=== PATIENT | male | born 1965 | race Caucasian/White ===

== ENCOUNTER 2018-02-18 06:24 | Day surgery (SDC) | payer MEDICARE ==
[2018-02-18] MEDS ORDERED: DIPRIVAN 200 MG/20 ML IV ONE (06:25)
[2018-02-18] MEDS ORDERED: Ketamine HCl 50 MG/ML IJ ONE (06:25)
[2018-02-18] MEDS ORDERED: Lactated Ringers 1,000 ML IV SCH (06:30)
[2018-02-18 08:38] VITALS: O2SAT 97
[2018-02-18 08:39] VITALS: BP 140/84; PULSE 74
--- NOTE | 2018-02-18 08:41 | OP ---
SURGERY DATE/TIME: 02/18/2018 0714 PREOPERATIVE DIAGNOSIS: Dysphagia. POSTOPERATIVE DIAGNOSIS: Normal exam. PROCEDURE: EGD. SURGEON: Yuniel Emerson M.D. ANESTHESIA: MAC by Brandon Bingham CRNA. ESTIMATED BLOOD LOSS: None. SPECIMENS: None. DESCRIPTION OF PROCEDURE: After informed written consent was obtained, the patient was taken to the endoscopy suite. He underwent monitored anesthesia and a bite block was inserted. The endoscope was inserted into the posterior oropharynx and under direct visualization the esophagus was traversed. The esophageal mucosa had no obvious abnormalities. There was no evidence of stricture or webbing upon entry into the stomach. There was normal rugated gastric mucosa free of lesions or defects. The pylorus was traversed and the first and second portions of the duodenum within normal limits. Upon withdrawal again all mucosal structures appeared normal. The gastric mucosa was free of any lesions. The gastroesophageal junction and esophageal mucosa likewise appeared normal. The scope was removed and the patient was transferred to the recovery room in good condition.
== END 2018-02-18 08:53 | disposition home or self-care (01) ==
LOC: SDC 06:24
PROVIDERS: ATTEND Family Medicine
DX: R13.10 Dysphagia, unspecified (principal)
CPT/HCPCS: 82962; 94250; J2704

== ENCOUNTER 2018-04-22 05:59 | Day surgery (SDC) | payer MEDICARE ==
[2018-04-22] MEDS ORDERED: DIPRIVAN 200 MG/20 ML IV ONE (06:00)
[2018-04-22] MEDS ORDERED: Ketamine HCl 50 MG/ML IV ONE (06:00)
[2018-04-22] MEDS ORDERED: Lactated Ringers 1,000 ML IV ONE (06:00)
[2018-04-22] MEDS ORDERED: Lactated Ringers 1,000 ML IV SCH (06:30)
[2018-04-22 08:17] VITALS: O2SAT 96
--- NOTE | 2018-04-22 08:44 | OP ---
SURGERY DATE/TIME: 04/22/2018 0715 PREOPERATIVE DIAGNOSIS: Screening colonoscopy. POSTOPERATIVE DIAGNOSIS: Normal colon. PROCEDURE: Colonoscopy. SURGEON: Yuniel Emerson M.D. ANESTHESIA: MAC by Grady Bingham CRNA. ESTIMATED BLOOD LOSS: None. SPECIMENS: None. DESCRIPTION OF PROCEDURE: After informed written consent was obtained, the patient was taken to the endoscopy suite. He underwent monitored anesthesia and digital rectal exam showed normal sphincter tone and no internal lesions. The scope was inserted into the rectum and sequentially the entire colonic mucosa was traversed. The level of cecum was reached and verified with direct visualization of ileocecal valve. Upon withdrawal careful mucosal inspection revealed no gross abnormalities. Of note there was a fair amount of liquid stool throughout most of the length of the colon which was irrigated, suctioned in different areas to improve visualization but prep was noted to be suboptimal. Prior to withdrawal retroflexion showed no internal lesions. The scope was removed and the patient was transferred to the recovery room in excellent condition.
[2018-04-22 08:48] VITALS: PULSE 73
[2018-04-22 08:59] VITALS: BP 127/71
== END 2018-04-22 09:08 | disposition home or self-care (01) ==
LOC: SDC 05:59
PROVIDERS: ATTEND Family Medicine
DX: Z12.11 Encounter for screening for malignant neoplasm of colon (principal); E11.9 Type 2 diabetes mellitus without complications; K21.9 Gastro-esophageal reflux disease without esophagitis
CPT/HCPCS: 00812; 94250; G0121; J2704

== ENCOUNTER 2019-01-12 17:59 | Emergency (ER) | payer MEDICARE | END 2019-01-12 20:35 | disposition home or self-care (01) | LOC: ED 17:59 ==

== ENCOUNTER 2019-11-10 15:03 | Inpatient (IN) | payer MEDICARE ==
[2019-11-10] MEDS ORDERED: DUONEB 0.5-3 MG/3 ml Neb IH ONE ×2 (15:10)
[2019-11-10] MEDS ORDERED: solu-MEDROL 125 MG IV ONE (15:10)
[2019-11-10] MEDS ORDERED: Sodium Chloride 0.9% 1000 ML 1,000 ML IV STA ×2 (15:10→15:43)
[2019-11-10] MEDS ORDERED: Sodium Chloride 0.9% 1000 ML 1,000 ML ONE ×2 (15:12→15:45)
[2019-11-10] MEDS ORDERED: solu-MEDROL 125 MG ONE (15:17)
--- NOTE | 2019-11-10 15:17 | ERPHSYRPT ---
- History of Present Illness Time Seen by Provider: 11/10/19 15:08 Source: patient Exam Limitations: clinical condition Physician History: 54 years old male with history of diabetes mellitus, COPD presented in the ER with worsening dyspnea since morning. Patient report shortness of breath started all of a sudden at resting, aggravated with minimal activity and can hardly take few steps. He is also complaining of minimal productive clear yellow sputum cough. Has some pressure in the chest but no pain otherwise. He also has nausea and vomited once. No abdominal pain. Denies any fever or chills. Timing/Duration: today, sudden, worse Activities at Onset: rest Severity of Dyspnea-Max: severe Severity of Dyspnea-Current: severe Possible Cause: no prior episodes Modifying Factors: Improves With: activity Associated Symptoms: cough, weakness (generalized), sweating, No edema, No fever , No loss of appetite, No lightheadedness, No dizziness Allergies/Adverse Reactions: No Known Drug Allergies Allergy (Verified 04/22/18 06:19) Home Medications: Celecoxib [Celebrex] 200 mg PO BID 02/26/13 [History] Metformin HCl 1000 mg [Glucophage 1000 MG] 1,000 mg PO BID 02/26/13 [History] Montelukast Sodium 10 mg [Singulair 10 MG] 10 mg PO DAILY 02/26/13 [History] Fluticasone Propionate [Flonase Allergy Relief] 9.9 ml NS UD 02/11/18 [History] Fluticasone/Salmeterol [Advair 500-50 Diskus] 1 each IH DAILY 02/11/18 [History] Insulin Degludec [Tresiba Flextouch U-100] 58 unit SQ HS 02/11/18 [History] Insulin Lispro [Humalog] 15 unit SQ DAILY 02/11/18 [History] Ipratropium/Albuterol Sulfate [Combivent Inhaler] 15 gm IH DAILY 02/11/18 [ History] Omeprazole 20 MG [Prilosec 20 mg] 20 mg PO HS 02/11/18 [History] Zolpidem Tartrate 10 mg [Ambien 10 MG] 10 mg PO HS 02/11/18 [History] Pravastatin Sodium [Pravachol] 40 mg PO HS 03/20/18 [History] Hx Tetanus, Diphtheria Vaccination/Date Given: No Hx Influenza Vaccination/Date Given: Yes Hx Pneumococcal Vaccination/Date Given: No - Review of Systems All Other Systems: Unable due to condition - Past Medical History Pertinent Past Medical History: Yes Neurological History: Peripheral Neuropathy ENT History: Cataracts Cardiac History: High Cholesterol Respiratory History: COPD Endocrine Medical History: Diabetes Type II Musculoskeletal History: Osteoarthritis GI Medical History: GERD, Gallbladder Disease History: No Pertinent History Psycho-Social History: No Pertinent History Male Reproductive Disorders: No Pertinent History Other Medical History: CHOLECYSTECTOMY, NECK ABSCESS - Past Surgical History Past Surgical History: Yes Neuro Surgical History: No Pertinent History Cardiac: No Pertinent History Respiratory: No Pertinent History Gastrointestinal: Cholecystectomy Genitourinary: No Pertinent History Musculoskeletal: No Pertinent History Male Surgical History: No Pertinent History Other Surgical History: [email or web address] - Social History Smoking Status: Former smoker Exposure to second hand smoke: No Drug Use: none Patient Lives Alone: No - Nursing Vital Signs Nursing Vital Signs: Initial Vital Signs Temperature 97.6 F 11/10/19 15:06 Pulse Rate 124 H 11/10/19 15:06 Respiratory Rate 32 H 11/10/19 15:06 Blood Pressure 133/71 11/10/19 15:06 O2 Sat by Pulse Oximetry 98 11/10/19 15:06 Pain Scale Pain Intensity 0 - Physical Exam General Appearance: moderate distress, alert Eye Exam: PERRL/EOMI, eyes nml inspection Ears, Nose, Throat Exam: hearing grossly normal, pharyngeal erythema Neck Exam: normal inspection, non-tender, supple, full range of motion Respiratory Exam: accessory muscle use, wheezing, No chest tenderness Cardiovascular/Chest Exam: normal heart sounds, tachycardia Abdominal/Gastrointestinal Exam: soft, normal bowel sounds, No tenderness Extremity Exam: non-tender, normal range of motion, normal inspection Neurologic Exam: alert, oriented x 3, cooperative, spool sorter II-XII nml as tested Skin Exam: normal color, warm SpO2 Interpretation: O2 applied SpO2: 2 O2 Delivery: Nasal Cannula - Course Nursing assessment & vital signs reviewed: Yes EKG Interpreted by Me: RATE ([id number]), Left Courtland Deviation, Other (early Repolarization) Ordered Tests: Active Orders 24 hr Category Date Time Status Disability Insurance Claim Examiner STAT Care 11/10/19 15:12 Active EKG-ER Only STAT Care 11/10/19 15:10 Active IV Insertion STAT Care 11/10/19 15:10 Active NPO (ED) STAT Care 11/10/19 15:10 Active CHEST 1 VIEW (PORTABLE) Stat Exams 11/10/19 15:11 Completed ARTERIAL BLOOD GASES Stat Lab 11/10/19 15:40 Completed BLOOD CULTURE Stat Lab 11/10/19 16:00 Received CBC W DIFF Stat Lab 11/10/19 15:20 Completed CMP Stat Lab 11/10/19 15:20 Completed Glucose,Critical Care Stat Lab 11/10/19 15:15 Completed Lactic Acid Stat Lab 11/10/19 15:40 Completed MAGNESIUM Stat Lab 11/10/19 15:20 Completed Manual Differential NC Stat Lab 11/10/19 15:20 Completed NT PRO BNP Stat Lab 11/10/19 15:20 Completed PROTIME WITH INR Stat Lab 11/10/19 15:20 Completed PTT Stat Lab 11/10/19 15:20 Completed TROPONIN Q3H Lab 11/10/19 15:20 Completed TROPONIN Q3H Lab 11/10/19 18:15 Ordered TROPONIN Q3H Lab 11/10/19 21:15 Ordered TROPONIN Q3H Lab 11/11/19 00:15 Ordered TROPONIN Q3H Lab 11/11/19 03:15 Ordered BiPap/CPAP STAT RT 11/10/19 15:10 Completed Respiratory Therapy Assessment DAILY RT 11/10/19 15:33 Active Transfer Order Routine Transfer 11/10/19 Ordered Medication Summary Generic Name Dose Route Start Last Admin Trade Name Freq PRN Reason Stop Dose Admin Insulin Human Regular 100 101 mls @ 0 mls/hr 11/10/19 16:00 11/10/19 16:17 units/ Sodium Chloride IV 12/10/19 15:59 8.69 units/hr .Q0M FATOU 8.78 mls/hr Administration Per Protocol Discontinued Medications Generic Name Dose Route Start Last Admin Trade Name Freq PRN Reason Stop Dose Admin Albuterol/Ipratropium Confirm 11/10/19 15:10 Duoneb 0.5-3 Mg/3 Ml Neb Administered 11/10/19 15:11 Dose 3 ml IH .STK-MED ONE Albuterol/Ipratropium 3 ml 11/10/19 15:10 Duoneb 0.5-3 Mg/3 Ml Neb IH 11/10/19 15:11 STAT ONE Sodium Chloride 1,000 mls @ 999 mls/hr 11/10/19 15:10 11/10/19 16:20 Sodium Chloride 0.9% 1000 Ml IV 11/10/19 16:10 Infused .Q1H1M STA Infusion Sodium Chloride Confirm 11/10/19 15:12 Sodium Chloride 0.9% 1000 Ml Administered 11/10/19 15:13 Dose 1,000 mls @ ud .ROUTE .STK-MED ONE Sodium Chloride 1,000 mls @ 999 mls/hr 11/10/19 15:43 11/10/19 15:47 Sodium Chloride 0.9% 1000 Ml IV 11/10/19 16:43 999 mls/hr .Q1H1M STA Administration Sodium Chloride Confirm 11/10/19 15:45 Sodium Chloride 0.9% 1000 Ml Administered 11/10/19 15:46 Dose 1,000 mls @ ud .ROUTE .STK-MED ONE Piperacillin Sod/Tazobactam 100 mls @ 200 mls/hr 11/10/19 16:20 Sod 3.375 gm/ Sodium Chloride IV 11/10/19 16:49 STAT ONE Methylprednisolone Sodium Succinate 125 mg 11/10/19 15:10 11/10/19 15:19 Solu-Medrol 125 Mg IV 11/10/19 15:11 125 mg STAT ONE Administration Methylprednisolone Sodium Succinate Confirm 11/10/19 15:17 Solu-Medrol 125 Mg Administered 11/10/19 15:18 Dose 125 mg .ROUTE .STK-MED ONE Sodium Bicarbonate 50 meq 11/10/19 15:47 11/10/19 15:59 Sodium Bicarbonate 50 Meq/50 Ml Abboject IV 11/10/19 15:48 50 meq STAT ONE Administration Sodium Bicarbonate Confirm 11/10/19 15:53 Sodium Bicarbonate 50 Meq/50 Ml Abboject Administered 11/10/19 15:54 Dose 50 meq IV .STK-MED ONE Lab/Rad Data: Laboratory Result Diagrams 11/10/19 15:20 11/10/19 15:20 Laboratory Results 11/10/19 11/10/19 11/10/19 Range/Units 15:40 15:20 15:20 WBC (4.0-10.5) K/mm3 RBC (4.1-5.6) M/mm3 Hgb (12.5-18.0) gm/dl Hct (42-50) % MCV (78-100) fl MCH (26-32) pg MCHC (32-36) g/dl RDW (11.5-14.0) % Plt Count (150-450) K/mm3 MPV (7.5-11.0) fl PT 10.1 (8.83-12.87) SECONDS INR 0.90 (0.8-3.0) APTT 27.6 (24.1-36.1) SECONDS Puncture Site RIGHT RADIAL pCO2 10 L* (35-45) mmHg pO2 162 H* (75-100) mmHg Base Excess -29.2 L (-2.0-2.0) O2 Saturation 97.6 (94-100) g/dF ABG pH 6.91 L* (7.35-7.45) ABG HCO3 2.0 L* (22-28) ABG O2 Sat (Measured) 99.2 (95-100) % Dhiraj Test YES A-a Gradient 82 a/A Ratio 0.66 Hemoglobin 14.8 Carboxyhemoglobin 0.8 (0.0-6.9) % THgb Methemoglobin 0.8 L (1.4-1.5) % Glucose (70-110) Temperature 37.0 C POC O2 Flow Rate 36 % Sodium (137-145) mmol/L Potassium 5.8 H (3.5-5.1) mmol/L Chloride (98-107) mmol/L Carbon Dioxide (22-30) mmol/L Anion Gap (5-15) MEQ/L BUN (9-20) mg/dL Creatinine (0.66-1.25) mg/dL Estimated GFR ML/MIN Lactic Acid 3.0 H (0.4-2.0) Calcium (8.4-10.2) mg/dL Magnesium (1.6-2.3) mg/dL Total Bilirubin (0.2-1.3) mg/dL AST (17-59) U/L ALT (0-50) U/L Alkaline Phosphatase (38-126) U/L Troponin I < 0.012 (0.000-0.034) ng/mL NT-Pro-B Natriuret Pep (0-900) pg/mL Serum Total Protein (6.3-8.2) g/dL Albumin (3.5-5.0) g/dL 11/10/19 11/10/19 11/10/19 Range/Units 15:20 15:20 15:15 WBC 22.9 H (4.0-10.5) K/mm3 RBC 4.81 (4.1-5.6) M/mm3 Hgb 15.1 (12.5-18.0) gm/dl Hct 46.7 (42-50) % MCV 97.1 (78-100) fl MCH 31.4 (26-32) pg MCHC 32.3 (32-36) g/dl RDW 12.7 (11.5-14.0) % Plt Count 266 (150-450) K/mm3 MPV 12.4 H (7.5-11.0) fl PT (8.83-12.87) SECONDS INR (0.8-3.0) APTT (24.1-36.1) SECONDS Puncture Site pCO2 (35-45) mmHg pO2 (75-100) mmHg Base Excess (-2.0-2.0) O2 Saturation (94-100) g/dF ABG pH (7.35-7.45) ABG HCO3 (22-28) ABG O2 Sat (Measured) (95-100) % Dhiraj Test A-a Gradient a/A Ratio Hemoglobin Carboxyhemoglobin (0.0-6.9) % THgb Methemoglobin (1.4-1.5) % Glucose 733 H* 685 H* (70-110) Temperature C POC O2 Flow Rate % Sodium 132 L (137-145) mmol/L Potassium 6.1 H* (3.5-5.1) mmol/L Chloride 93 L (98-107) mmol/L Carbon Dioxide < 5 L* (22-30) mmol/L Anion Gap (5-15) MEQ/L BUN 36 H (9-20) mg/dL Creatinine 2.14 H (0.66-1.25) mg/dL Estimated GFR 34.1 ML/MIN Lactic Acid (0.4-2.0) Calcium 8.9 (8.4-10.2) mg/dL Magnesium 2.3 (1.6-2.3) mg/dL Total Bilirubin 0.40 (0.2-1.3) mg/dL AST 28 (17-59) U/L ALT 21 (0-50) U/L Alkaline Phosphatase 119 (38-126) U/L Troponin I (0.000-0.034) ng/mL NT-Pro-B Natriuret Pep 106 (0-900) pg/mL Serum Total Protein 7.9 (6.3-8.2) g/dL Albumin 5.0 (3.5-5.0) g/dL - Progress Progress: re-examined, unchanged Air Movement: fair Progress Note: 11/10/19 16:21 54 years old male presented in the ER with severe respiratory distress. He is placed on oxygen, given DuoNeb and steroid. Patient blood sugar Accu-Chek is reading high. Work-up showed pH 6.91 with bicarb 2 and potassium of 6.1. EKG showed sinus tach with some early repolarization changes. He is given 2 boluses of IV fluids. Blood sugar 733 and anion gap around 30. Started on insulin drip per DKA protocol. White count of 22 which could be reactive. Chest x-ray showed questionable pneumonia on the right side and given a dose of antibiotic as well. Discussed with Dr. Fonseca and patient is admitted to ICU. Blood Culture(s) Obtained: Yes Antibiotics given: Yes Discussed with : Other Will see patient in: hospital (full admit) Counseled pt/family regarding: lab results, diagnosis, rad results - Departure Departure Disposition: In-patient Admission Clinical Impression: Sepsis due to pneumonia DKA (diabetic ketoacidoses) Qualifiers: Diabetes mellitus type: type 2 Diabetes mellitus complication detail: without coma Qualified Code(s): E11.10 - Type 2 diabetes mellitus with ketoacidosis without coma Acute renal failure Qualifiers: Acute renal failure type: unspecified Qualified Code(s): N17.9 - Acute kidney failure, unspecified Condition: Serious Critical Care Time: Yes Critical Care Time(excluding separately billable procedures): Critical 75-104 mins Referrals: CONY GAINES [Primary Care Provider] -
[2019-11-10 15:39] LABS: Hematocrit 46.7 % (42-50); Hemoglobin 15.1 gm/dl (12.5-18.0); Mean Cell Volume 97.1 fl (78-100); Mean Corpuscular Hemoglobin 31.4 pg (26-32); Mean Corpuscular Hgb Concent. 32.3 g/dl (32-36); Mean Platelet Volume 12.4 fl (7.5-11.0); Platelet Count 266 K/mm3 (150-450); Red Blood Count 4.81 M/mm3 (4.1-5.6); Red Cell Distribution Width 12.7 % (11.5-14.0); White Blood Count 22.9 K/mm3 (4.0-10.5)
[2019-11-10 15:43] LABS: A-aADO2 82; ABG HEMOGLOBIN 14.8; ABG POTASSIUM 5.8 (3.5-5.1); ARTERIAL BLD GAS O2 SATURATION 99.2 % (95-100); ARTERIAL BLOOD GAS BASE EXCESS -29.2 (-2.0-2.0); ARTERIAL BLOOD GAS FIO2 36 %; ARTERIAL BLOOD GAS PCO2 10 mmHg (35-45); ARTERIAL BLOOD GAS PO2 162 mmHg (75-100); ARTERIAL BLOOD GAS pH 6.91 (7.35-7.45); CARBOXYHEMOGLOBIN 0.8 % THgb (0.0-6.9); HGB O2 SAT 97.6 g/dF (94-100); Methhemoglobin 0.8 % (1.4-1.5); paO2 pAO1 0.66
[2019-11-10 15:44] LABS: ABG SITE RIGHT RADIAL; ALLEN TEST OK? YES
[2019-11-10] MEDS ORDERED: SODIUM BICARBONATE 50 MEQ/50 ML ABBOJECT IV ONE ×4 (15:47→16:52)
[2019-11-10 15:53] LABS: INR 0.9 (0.8-3.0); PROTIME 10.1 SECONDS (8.83-12.87)
[2019-11-10 15:56] LABS: PTT 27.6 SECONDS (24.1-36.1)
--- NOTE | 2019-11-10 15:58 | XRAY ---
Exam: AP upright portable chest film from 11/10/2019. Comparison: Two-view chest from 08/17/2019. Indication: 54-year-old male with shortness of breath, diabetic ketoacidosis, rule out pneumonia. Findings: The lungs are hypoinflated which slightly accentuates the heart size. EKG leads are seen in place. Abundant air is seen within the stomach lumen in the left upper quadrant, perhaps due to air swallowing. Mild tortuosity of the descending thoracic aorta is seen. I see no obvious air space infiltrates, pneumothorax, or pleural effusion. No acute osseous process is seen. Some convexity of the upper lumbar spine toward the right is again seen. Impression: 1. Somewhat hypoinflated chest without evidence of focal pulmonary infiltrates or other acute cardiopulmonary disease.
[2019-11-10] MEDS ORDERED: NOVOLIN R INSULIN (FOR DRIPS)** 100 UNITS in Sodium Chloride 0.9% 100 ML IVPB 100 ML IV SCH (16:00)
[2019-11-10 16:06] LABS: ALKALINE PHOSPHATASE 119 U/L (38-126); BLOOD UREA NITROGEN 36 mg/dL (9-20); CHLORIDE 93 mmol/L (98-107); Calcium 8.9 mg/dL (8.4-10.2); Creatinine 1 2.14 mg/dL (0.66-1.25); MAGNESIUM 2.3 mg/dL (1.6-2.3); NT PRO BNP 106 pg/mL (0-900); SGOT/AST 28 U/L (17-59); SGPT/ALT 21 U/L (0-50); SODIUM 132 mmol/L (137-145); Total Protein 7.9 g/dL (6.3-8.2)
[2019-11-10 16:09] LABS: Carbon Dioxide < 5 mmol/L (22-30); Glucose 733 mg/dL (74-106)
[2019-11-10 16:12] LABS: Potassium 6.1 mmol/L (3.5-5.1)
[2019-11-10] MEDS ORDERED: Zosyn 3.375 GM Vial 3.375 GM in Sodium Chloride 100ML MINI-BAG PLUS 100 ML IV ONE (16:20)
[2019-11-10] MEDS ORDERED: Zosyn 3.375 GM Vial IV ONE ×2 (16:51→19:56)
[2019-11-10] MEDS ORDERED: Sodium Chloride 100ML MINI-BAG PLUS 100 ML IV ONE ×2 (16:51→19:56)
[2019-11-10] MEDS ORDERED: HUMULIN R IV ONE (17:19)
[2019-11-10] MEDS ORDERED: Zofran 4 MG/2 ML VIAL IV PRN (17:43)
[2019-11-10] MEDS ORDERED: DUONEB 0.5-3 MG/3 ml Neb IH PRN (17:43)
[2019-11-10] MEDS ORDERED: HUMULIN R 100 UNIT in Sodium Chloride 0.9% 100 ML IVPB 100 ML IV PRN (17:53)
[2019-11-10] MEDS ORDERED: VENTOLIN COMMON CANISTER IH PRN (17:53)
[2019-11-10] MEDS: Zosyn 3.375 GM Vial 3.375 GM in Sodium Chloride 100ML MINI-BAG PLUS 100 ML IV SCH ×2 (17:58→23:37)
[2019-11-10 19:39] LABS: A-aADO2 76; ABG HEMOGLOBIN 15.2; ABG POTASSIUM 4.5 (3.5-5.1); ARTERIAL BLD GAS O2 SATURATION 98.9 % (95-100); ARTERIAL BLOOD GAS BASE EXCESS -24.7 (-2.0-2.0); ARTERIAL BLOOD GAS FIO2 32 %; ARTERIAL BLOOD GAS PO2 140 mmHg (75-100); ARTERIAL BLOOD GAS pH 7.08 (7.35-7.45); CARBOXYHEMOGLOBIN 0.4 % THgb (0.0-6.9); HGB O2 SAT 97.5 g/dF (94-100); paO2 pAO1 0.65
[2019-11-10 19:40] LABS: ABG SITE RIGHT RADIAL; ALLEN TEST OK? YES; ARTERIAL BLOOD GAS PCO2 10 mmHg (35-45)
[2019-11-10 20:35] LABS: BLOOD UREA NITROGEN 34 mg/dL (9-20); CHLORIDE 101 mmol/L (98-107); Calcium 8.5 mg/dL (8.4-10.2); Creatinine 1 1.74 mg/dL (0.66-1.25); Potassium 4.8 mmol/L (3.5-5.1); SODIUM 135 mmol/L (137-145)
[2019-11-10] MEDS ORDERED: Protonix 40MG Tablet PO SCH (22:00)
[2019-11-10] MEDS ORDERED: Ambien 10 MG PO SCH (22:00)
[2019-11-10] MEDS ORDERED: ZOCOR 20MG PO SCH (22:00)
[2019-11-10 22:21] LABS: Carbon Dioxide < 5 mmol/L (22-30); Glucose 533 mg/dL (74-106)
[2019-11-10] MEDS: celeBREX 100 MG PO SCH ×2 (22:23→22:26)
[2019-11-10 22:44] LABS: BAND 2 % (0.0-2.0); Lymphocytes 15 % (24-44); Monocyte 3 % (0.0-12.0); Neutrophils 80 % (36.-66.); Total Cells Counted 100
[2019-11-10 22:45] LABS: Platelet Estimate NORMAL (NORMAL)
[2019-11-10 23:36] LABS: A-aADO2 104; ABG HEMOGLOBIN 14.4; ABG POTASSIUM 4.3 (3.5-5.1); ARTERIAL BLD GAS O2 SATURATION 99.8 % (95-100); ARTERIAL BLOOD GAS FIO2 36 %; ARTERIAL BLOOD GAS PCO2 16 mmHg (35-45); ARTERIAL BLOOD GAS PO2 133 mmHg (75-100); ARTERIAL BLOOD GAS pH 7.27 (7.35-7.45); HCO3- 7.3 (22-28); HGB O2 SAT 97.9 g/dF (94-100); paO2 pAO1 0.56
[2019-11-10 23:37] LABS: ABG SITE RIGHT RADIAL; ALLEN TEST OK? YES
[2019-11-11 00:18] LABS: ANION GAP 28.4 MEQ/L (5-15); Calcium 8.4 mg/dL (8.4-10.2); Creatinine 1 1.43 mg/dL (0.66-1.25); Potassium 4.6 mmol/L (3.5-5.1)
[2019-11-11] MEDS: Sodium Chloride 0.9% 1000 ML 1,000 ML IV SCH ×2 (00:27→08:12)
[2019-11-11] MEDS ORDERED: Lantus Insulin ONE (01:18)
[2019-11-11] MEDS ORDERED: Lantus Insulin SQ SCH (01:25)
[2019-11-11] MEDS: HUMALOG SQ PRN ×4 (03:47→12:25)
[2019-11-11 03:51] LABS: ARTERIAL BLOOD GAS PCO2 16 mmHg (35-45); ARTERIAL BLOOD GAS pH 7.24 (7.35-7.45)
[2019-11-11 03:52] LABS: A-aADO2 88; ABG POTASSIUM 4.7 (3.5-5.1); ARTERIAL BLD GAS O2 SATURATION 98.8 % (95-100); ARTERIAL BLOOD GAS PO2 149 mmHg (75-100); CARBON DIOXIDE 7 mEq/L (23-27); HCO3- 6.9 (22-28); Methhemoglobin 1.1 % (1.4-1.5); paO2 pAO1 0.63
[2019-11-11 03:53] LABS: ABG SITE RIGHT RADIAL; ALLEN TEST OK? YES; ARTERIAL BLOOD GAS FIO2 36 %; HGB O2 SAT 98.5 g/dF (94-100)
[2019-11-11 03:58] LABS: BLOOD UREA NITROGEN 27 mg/dL (9-20); CHLORIDE 106 mmol/L (98-107); Calcium 7.9 mg/dL (8.4-10.2); Creatinine 1 1.22 mg/dL (0.66-1.25); Glucose 263 mg/dL (74-106); Potassium 4.8 mmol/L (3.5-5.1); SODIUM 136 mmol/L (137-145)
[2019-11-11 04:06] LABS: Carbon Dioxide 7 mmol/L (22-30)
[2019-11-11] MEDS ORDERED: Zosyn 3.375 GM Vial IV ONE (04:14)
[2019-11-11] MEDS ORDERED: Sodium Chloride 100ML MINI-BAG PLUS 100 ML IV ONE (04:15)
[2019-11-11] MEDS: Zosyn 3.375 GM Vial 3.375 GM in Sodium Chloride 100ML MINI-BAG PLUS 100 ML IV SCH ×2 (04:46→11:31)
[2019-11-11 05:12] LABS: BASOPHIL % 0.3 % (0.0-0.4); Basophil (Absolute #) 0.06 (0-0.4); Eosinophil (Absolute #) 0 (0-0.5); Hematocrit 38.9 % (42-50); Hemoglobin 13.7 gm/dl (12.5-18.0); Lymphocyte (Absolute #) 0.64 (1.0-4.6); Lymphocytes % 3.1 % (24.0-44.0); Mean Cell Volume 90.7 fl (78-100); Mean Corpuscular Hemoglobin 31.9 pg (26-32); Mean Corpuscular Hgb Concent. 35.2 g/dl (32-36); Mean Platelet Volume 12.2 fl (7.5-11.0); Monocyte (Absolute #) 2.15 (0.0-1.3); Monocytes % 10.5 % (0.0-12.0); Neutrophil % 86.1 % (36.0-66.0); Platelet Count 179 K/mm3 (150-450); Red Blood Count 4.29 M/mm3 (4.1-5.6); Red Cell Distribution Width 12.2 % (11.5-14.0); White Blood Count 20.6 K/mm3 (4.0-10.5)
[2019-11-11] MEDS ORDERED: Sodium Chloride 0.9% 1000 ML 1,000 ML ONE (06:28)
[2019-11-11] MEDS ORDERED: Singulair 10 MG PO SCH (10:00)
[2019-11-11] MEDS ORDERED: PROTONIX 40 MG IV IV SCH (10:00)
[2019-11-11] MEDS ORDERED: ADVAIR 500-50 DISKUS IH SCH (10:00)
[2019-11-11] MEDS ORDERED: NON-FORMULARY ITEM (Celecoxib [Celebrex] 200 MG) PO SCH (10:00)
[2019-11-11] MEDS ORDERED: Flonase NASAL NS SCH (10:00)
[2019-11-11] MEDS ORDERED: celeBREX 100 MG PO SCH (10:00)
[2019-11-11 12:16] VITALS: BP 132/80
[2019-11-11 12:49] LABS: Slide Review 1 YES
[2019-11-11 13:16] VITALS: PULSE 109
[2019-11-11 13:50] VITALS: O2SAT 95
--- NOTE | 2019-11-11 15:28 | HP ---
CHIEF COMPLAINT: Unresponsiveness, short of breath, frequent urination, nausea. HISTORY OF PRESENT ILLNESS: The patient is a 55 year-old man who has insulin dependent diabetes. He came to the Emergency Room with worsening of shortness of breath. He stated he has not been able to eat for 5 days. He has had a productive cough, some chest pain, but nothing real bad or lasted very long. In the Emergency Room, he was very short of breath. He apparently has not been taking his insulin. He has a patch which gives him his blood sugars and he says they don't stay on, so he doesn't have any and he doesn't check his blood sugars by finger checks. He doesn't have the ability to buy for that, so basically, he has been without insulin. 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 He is a nonsmoker. He has no history of coronary artery disease. He lives alone. CURRENT MEDICATIONS: Celebrex 200 q d, metformin 1000 bid, Singulair 10 q d, Flonase 1 spray q d, Advair 1 puff q d, insulin 58 units, Tresiba q HS, Lispro 15 q d, Combivent 1 puff q d, Prilosec 20 q d, Ambien 10 q d, and pravastatin 40 q d. REVIEW OF SYSTEMS: HEENT: Has blurred vision today. Having a hard time seeing, that is unusual. CHEST: Still short of breath at rest. Nonproductive cough. CVS: No history of heart attacks. No tachycardia in the past. ABDOMEN: Nausea, vomiting for about 5 days. Has had his gallbladder out. PAST SURGICAL HISTORY: Cholecystectomy, drainage of a neck abscess. SOCIAL HISTORY: Smoking history - Quit 20 years ago. . Does not drink alcohol. 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 He is very persistent that he needs to get back to work. PHYSICAL EXAMINATION: Patient is alert, oriented. Speech is a little bit slurred, rapid. NECK: Supple without adenopathy. CHEST: Few wheezes. Using accessory muscles. ABDOMEN: Slight tenderness. Normal bowel sounds. EXTREMITIES: Decreased pulses in the feet. No hair on the legs. Patient is in diabetic ketoacidosis with a pH OF 6.9. His creatinine is elevated to about 2.1. His WBC was normal. Temperature was 100.2. Chest x-ray was normal. IMPRESSION: 1. PATIENT IS IN DIABETIC KETOACIDOSIS. 2. INSULIN DEPENDENT DIABETES MELLITUS. 3. POSSIBLE COVID-19 CAUSING COUGH. PLAN: Patient is being given large amounts of IV fluids. He has an insulin drip, 1 unit an hour. He is on O2. To be monitored with blood gases for a while. He states he is feeling better already as he has been in Emergency Room for 4 hours. PROGNOSIS: Fair. COVID-19 virus test will take 24-48 hours to get back, so he will be in the COVID-19 unit until that is cleared.
[2019-11-25 04:52] LABS: ABG HEMOGLOBIN 14.1
== END 2019-11-11 13:59 | disposition home or self-care (01) | DRG 639 ==
LOC: ED 15:03 → MED SURG 17:27
PROVIDERS: ADMIT Family Medicine; ATTEND Family Medicine
DX: E11.10 Type 2 diabetes mellitus with ketoacidosis without coma (principal); J44.9 Chronic obstructive pulmonary disease, unspecified; E78.00 Pure hypercholesterolemia, unspecified; J40 Bronchitis, not specified as acute or chronic; N19 Unspecified kidney failure; Z11.59 Encounter for screening for other viral diseases; R05 Cough; Z79.4 Long term (current) use of insulin; Z79.899 Other long term (current) drug therapy
CPT/HCPCS: 36415; 36600; 80048; 80053; 82375; 82803; 82947; 82962; 83036; 83605; 83735; 83880; 84484; 85025; 85610; 85730; 87040; 87086; 93005; 93041; 94002; 94640; 94762; 96360; 96361; 96365; 96367; 96374; 96375; 96376; 99291; 99292; U0002; 36000; 71045; 99285; J1815; J1817; J2930; A9270-GY

== ENCOUNTER 2021-04-11 19:20 | Emergency (ER) | payer MEDICARE ==
[2013-02-26 20:25] VITALS: BP 123/75
[2021-04-11] MEDS ORDERED: LEVOPHED 4 MG/4 ML 4,000 MCG in Dextrose 5%/Water IV Soln. 500 ML 500 ML IV ONE (19:21)
[2021-04-11] MEDS ORDERED: Sodium Chloride 0.9% 1000 ML 1,000 ML IV STA ×3 (19:30→21:36)
[2021-04-11] MEDS ORDERED: Sodium Chloride 0.9% 1000 ML 1,000 ML ONE ×4 (19:31→21:44)
[2021-04-11] MEDS ORDERED: Zofran 4 MG/2 ML VIAL IV ONE (19:32)
[2021-04-11 19:51] LABS: Lactic Acid 2.8 (0.4-2.0); VBG BASE EXCESS -25.9 (-2.0-2.0); VBG CARBOXYHEMOGLOBIN 2.5 % T HGB (0.0-6.9); VBG HCO3- 3.9 meq/L (22-28); VBG HEMOGLOBIN 13.5; VBG O2 SATURATION 82.9 (95-100)
[2021-04-11 19:52] LABS: VBG pH 6.99 (7.32-7.42)
[2021-04-11] MEDS ORDERED: HUMULIN R 100 UNIT in Sodium Chloride 0.9% 100 ML BAG 100 ML IV PRN ×2 (19:52→20:40)
[2021-04-11] MEDS ORDERED: SODIUM BICARBONATE 50 MEQ/50 ML ABBOJECT IV ONE ×2 (19:52→19:59)
[2021-04-11 19:54] LABS: VBG POTASSIUM 7.2 (3.5-5.1)
[2021-04-11] MEDS ORDERED: Zofran 4 MG/2 ML VIAL ONE (19:58)
[2021-04-11] MEDS ORDERED: Zosyn 3.375 GM Vial 3.375 GM in Sodium Chloride 100ML MINI-BAG PLUS 100 ML IV ONE (20:02)
--- NOTE | 2021-04-11 20:03 | ERPHSYRPT ---
- History of Present Illness Time Seen by Provider: 04/11/21 19:29 Physician History: 55 years old male type II diabetic on insulin/OmniPod presented in the ER by EMS with elevated blood sugar going on for the last 3 days with associated nausea and multiple episodes of nonprojectile, nonbilious vomiting without hematemesis. Denies any abdominal pain. Denies any chest pain palpitations or shortness of breath. No fever or chills reported. Patient feels cold all over. Does not report history of DKA. Patient is not a good historian and history is limited. Timing/Duration: day(s) (3), constant, gradual onset, worse Severity: moderate Modifying Factors: Improves With: nothing Associated Symptoms: nausea, vomiting, loss of appetite, malaise, weakness, No abdominal pain, No shortness of breath, No diaphoresis, No cough, No chest pain, No fever, No headaches Allergies/Adverse Reactions: No Known Drug Allergies Allergy (Verified 04/11/21 20:04) Home Medications: Celecoxib [Celebrex] 200 mg PO BID 02/26/13 [History] Metformin HCl 1000 mg [Glucophage 1000 MG] 1,000 mg PO BID 02/26/13 [History] Montelukast Sodium 10 mg [Singulair 10 MG] 10 mg PO DAILY 02/26/13 [History] Fluticasone Propionate [Flonase Allergy Relief] 9.9 ml NS UD 02/11/18 [History] Fluticasone/Salmeterol [Advair 500-50 Diskus] 1 each IH DAILY 02/11/18 [History] Insulin Degludec [Tresiba Flextouch U-100] 58 unit SQ HS 02/11/18 [History] Insulin Lispro [Humalog] 15 unit SQ DAILY 02/11/18 [History] Ipratropium/Albuterol Sulfate [Combivent Inhaler] 15 gm IH DAILY 02/11/18 [His tory] Omeprazole 20 MG [Prilosec 20 mg] 20 mg PO HS 02/11/18 [History] Zolpidem Tartrate 10 mg [Ambien 10 MG] 10 mg PO HS 02/11/18 [History] Pravastatin Sodium [Pravachol] 40 mg PO HS 03/20/18 [History] Hx Tetanus, Diphtheria Vaccination/Date Given: No Hx Influenza Vaccination/Date Given: Yes Hx Pneumococcal Vaccination/Date Given: No - Review of Systems Constitutional: Chills, Fatigue, Weakness Eyes: No Symptoms Ears, Nose, & Throat: No Symptoms Respiratory: No Symptoms Cardiac: No Symptoms Abdominal/Gastrointestinal: Nausea, Vomiting Genitourinary Symptoms: No Symptoms Musculoskeletal: No Symptoms Skin: No Symptoms Neurological: No Symptoms Psychological: No Symptoms Hematologic/Lymphatic: No Symptoms Immunological/Allergic: No Symptoms - Past Medical History Pertinent Past Medical History: Yes Neurological History: Peripheral Neuropathy ENT History: Cataracts Cardiac History: High Cholesterol Respiratory History: COPD Endocrine Medical History: Diabetes Type II Musculoskeletal History: Osteoarthritis GI Medical History: GERD, Gallbladder Disease History: No Pertinent History Psycho-Social History: No Pertinent History Male Reproductive Disorders: No Pertinent History Other Medical History: CHOLECYSTECTOMY, NECK ABSCESS - Past Surgical History Past Surgical History: Yes Neuro Surgical History: No Pertinent History Cardiac: No Pertinent History Respiratory: No Pertinent History Gastrointestinal: Cholecystectomy Genitourinary: No Pertinent History Musculoskeletal: No Pertinent History Male Surgical History: No Pertinent History Other Surgical History: [email or web address] 2003 - Social History Smoking Status: Former smoker How long have you smoked: 15 Exposure to second hand smoke: No Drug Use: none Patient Lives Alone: No - Nursing Vital Signs Nursing Vital Signs: Initial Vital Signs Temperature 93.2 F 04/11/21 19:43 Pulse Rate 75 04/11/21 19:43 Respiratory Rate 24 04/11/21 19:43 Blood Pressure 89/49 04/11/21 19:43 O2 Sat by Pulse Oximetry 100 04/11/21 19:43 Pain Scale Pain Intensity 0 - Physical Exam General Appearance: alert, lethargy, other Eye Exam: PERRL/EOMI, eyes nml inspection Ears, Nose, Throat Exam: normal ENT inspection, dry mucous membranes Neck Exam: normal inspection, supple, full range of motion Respiratory Exam: normal breath sounds, lungs clear Cardiovascular Exam: regular rate/rhythm, normal heart sounds Gastrointestinal/Abdomen Exam: soft, normal bowel sounds, No tenderness Back Exam: normal inspection, normal range of motion Extremity Exam: normal inspection, normal range of motion Neurologic Exam: alert, oriented x 3, cooperative, law reporter II-XII nml as tested, No normal mood/affect Skin Exam: other (Cool clammy extremities) SpO2 Interpretation: normal SpO2: 95 O2 Delivery: Room Air Procedures - Central Line Time Of Procedure: 21:00 Timeout: Performed Central Line Lumen: triple Lumen Size: 7 [place] Central Line Procedure: chlorahexadine prep Central Line Postion: femoral (R) Anesthesia: 1% Lidocaine cc's of anesthesia: 3 Ultrasound Guided Placement: Yes Central Line Post Position: sutured, good blood return - Course EKG Interpreted by Me: RATE (74), Sinus Rhythm, Left [place] Deviation, Left Bundle Branch Block, Other (Peaked T waves anterolaterally. ST depression in inferior/lateral leads.) Ordered Tests: Active Orders 24 hr Category Date Time Status EKG-ER Only STAT Care 04/11/21 19:30 Completed IV Insertion STAT Care 04/11/21 19:30 Completed IV Insertion-2nd Peripheral STAT Care 04/11/21 19:30 Completed POCT Glucose Check STAT Care 04/11/21 19:30 Completed CHEST 1 VIEW (PORTABLE) Stat Exams 04/11/21 19:31 Taken BLOOD CULTURE Stat Lab 04/11/21 19:31 Ordered CBC W DIFF Stat Lab 04/11/21 19:30 Completed CMP Stat Lab 04/11/21 19:30 Completed Glucose Stat Lab 04/11/21 21:15 Completed LIPASE Stat Lab 04/11/21 19:32 Completed Lactic Acid Urgent Lab 04/11/21 19:43 Completed MAGNESIUM Stat Lab 04/11/21 19:31 Completed Manual Differential NC Stat Lab 04/11/21 19:30 Completed TROPONIN Q3H Lab 04/11/21 19:45 Completed TROPONIN Q3H Lab 04/11/21 21:18 Completed UA W/RFX UR CULTURE Stat Lab 04/11/21 20:19 Completed VENOUS BLOOD GAS Urgent Lab 04/11/21 19:43 Completed Medication Summary Generic Name Dose Route Start Last Admin Trade Name Freq PRN Reason Stop Dose Admin Insulin Human Regular 100 unit 100 mls @ 0 mls/hr 04/11/21 19:52 / Sodium Chloride IV 05/11/21 19:51 .Q0M PRN DKA/HYPERGLYCEMIA Protocol 0.1 UNIT/KG/HR Insulin Human Regular 100 unit 100 mls @ 0 mls/hr 04/11/21 20:40 / Sodium Chloride IV 05/11/21 20:39 .[id number] PRN DKA/HYPERGLYCEMIA Protocol 0.1 UNIT/KG/HR Discontinued Medications Generic Name Dose Route Start Last Admin Trade Name Freq PRN Reason Stop Dose Admin Sodium Chloride Confirm 04/11/21 19:31 Sodium Chloride 0.9% 1000 Ml Administered 04/11/21 19:32 Dose 1,000 mls @ ud .ROUTE .STK-MED ONE Sodium Chloride 1,000 mls @ 999 mls/hr 04/11/21 19:30 04/11/21 21:00 Sodium Chloride 0.9% 1000 Ml IV 04/11/21 20:30 Infused .Q1H1M STA Infusion Piperacillin Sod/Tazobactam 100 mls @ 200 mls/hr 04/11/21 20:02 04/11/21 20:17 Sod 3.375 gm/ Sodium Chloride IV 04/11/21 20:31 200 mls/hr STAT ONE Administration Sodium Chloride Confirm 04/11/21 20:05 Sodium Chloride 0.9% 1000 Ml Administered 04/11/21 20:06 Dose 1,000 mls @ ud .ROUTE .STK-MED ONE Sodium Chloride Confirm 04/11/21 20:12 Sodium Chloride 100ml Mini-Bag Plus Administered 04/11/21 20:13 Dose 100 mls @ ud IV .STK-MED ONE Sodium Chloride Confirm 04/11/21 20:43 Sodium Chloride 0.9% 1000 Ml Administered 04/11/21 20:44 Dose 1,000 mls @ ud .ROUTE .STK-MED ONE Sodium Chloride Confirm 04/11/21 20:51 Sodium Chloride 0.9% 100 Ml Bag Administered 04/11/21 20:52 Dose 100 mls @ ud .ROUTE .STK-MED ONE Sodium Chloride 1,000 mls @ 999 mls/hr 04/11/21 21:01 04/11/21 21:35 Sodium Chloride 0.9% 1000 Ml IV 04/11/21 22:01 Infused .Q1H1M STA Infusion Sodium Chloride 1,000 mls @ 999 mls/hr 04/11/21 21:36 04/11/21 21:39 Sodium Chloride 0.9% 1000 Ml IV 04/11/21 22:36 999 mls/hr .Q1H1M STA Administration Sodium Chloride Confirm 04/11/21 21:44 Sodium Chloride 0.9% 1000 Ml Administered 04/11/21 21:45 Dose 1,000 mls @ ud .ROUTE .STK-MED ONE Insulin Human Regular Confirm 04/11/21 20:04 Insulin Regular, Human 1 Unit Administered 04/11/21 20:05 Dose 8 unit .ROUTE .STK-MED ONE Insulin Human Regular 8 unit 04/11/21 20:41 04/11/21 20:10 Insulin Regular, Human 1 Unit IV 04/11/21 20:42 8 unit STAT ONE Administration Insulin Human Regular Confirm 04/11/21 20:50 Insulin Regular, Human 1 Unit Administered 04/11/21 20:51 Dose 1 unit .ROUTE .STK-MED ONE Ondansetron HCl 4 mg 04/11/21 19:32 04/11/21 20:09 Ondansetron Hcl 4 Mg/2 Ml Vial IV 04/11/21 19:33 4 mg STAT ONE Administration Ondansetron HCl Confirm 04/11/21 19:58 Ondansetron Hcl 4 Mg/2 Ml Vial Administered 04/11/21 19:59 Dose 4 mg .ROUTE .STK-MED ONE Piperacillin Sod/Tazobactam Sod Confirm 04/11/21 20:11 Piperacillin/Tazobactam Sodium 3.375 Gm Vial Administered 04/11/21 20:12 Dose 3.375 gm IV .STK-MED ONE Sodium Bicarbonate 50 meq 04/11/21 19:52 04/11/21 20:08 Sodium Bicarbonate 1 Meq/Ml 50ml Syringe IV 04/11/21 19:53 50 meq STAT ONE Administration Sodium Bicarbonate Confirm 04/11/21 19:59 Sodium Bicarbonate 1 Meq/Ml 50ml Syringe Administered 04/11/21 20:00 Dose 50 meq IV .STK-MED ONE Lab/Rad Data: Laboratory Result Diagrams 04/11/21 19:30 04/11/21 19:30 Laboratory Results 04/11/21 04/11/21 04/11/21 Range/Units 21:18 21:15 20:19 WBC (4.0-10.5) K/mm3 RBC (4.1-5.6) M/mm3 Hgb (12.5-18.0) gm/dl Hct (42-50) % MCV (78-100) fl MCH (26-32) pg MCHC (32-36) g/dl RDW (11.5-14.0) % Plt Count (150-450) K/mm3 MPV (7.5-11.0) fl Segmented Neutrophils (36.-66.) % Band Neutrophils (0.0-2.0) % Lymphocytes (Manual) (24-44) % Monocytes (Manual) (0.0-12.0) % Platelet Estimate (NORMAL) RBC Morphology pO2/FiO2 Ratio % VBG pH (7.32-7.42) VBG pCO2 at Pat Temp (42-55) mm/Hg VBG pO2 at Pat Temp (25-40) mm/Hg VBG HCO3 (22-28) meq/L VBG O2 Sat (Moni) (95-100) VBG Base Excess (-2.0-2.0) VBG Hemoglobin VBG Carboxyhemoglobin (0.0-6.9) % T HGB POC Potassium (3.5-5.1) Sodium (137-145) mmol/L Potassium (3.5-5.1) mmol/L Chloride (98-107) mmol/L Carbon Dioxide (22-30) mmol/L BUN (9-20) mg/dL Creatinine (0.66-1.25) mg/dL Estimated GFR ML/MIN Glucose 908 H* (74-106) mg/dL Lactic Acid (0.4-2.0) Calcium (8.4-10.2) mg/dL Magnesium (1.6-2.3) mg/dL Total Bilirubin (0.2-1.3) mg/dL AST (17-59) U/L ALT (0-50) U/L Alkaline Phosphatase (38-126) U/L Troponin I 0.385 H* (0.000-0.034) ng/mL Serum Total Protein (6.3-8.2) g/dL Albumin (3.5-5.0) g/dL Lipase (23-300) U/L Urine Color YELLOW (YELLOW) Urine Appearance SLIGHTLY CLOUDY (CLEAR) Urine pH 5.0 (5-6) Ur Specific [place] 1.017 (1.005-1.025) Urine Protein NEGATIVE (Negative) Urine Ketones SMALL (NEGATIVE) Urine Blood SMALL (0-5) Reginaldo/ul Urine Nitrite NEGATIVE (NEGATIVE) Urine Bilirubin NEGATIVE (NEGATIVE) Urine Urobilinogen NEGATIVE (0-1) mg/dL Ur Leukocyte Esterase NEGATIVE (NEGATIVE) Urine WBC (Auto) 3-5 (0-5) /HPF Urine RBC (Auto) 0-2 (0-2) /HPF Urine Bacteria (Auto) RARE (NEGATIVE) /HPF Urine Mucus (Auto) SLIGHT (NEGATIVE) /HPF Urine Culture Reflexed NO (NO) Urine Glucose >=500 (NEGATIVE) mg/dL 04/11/21 04/11/21 04/11/21 Range/Units 19:45 19:43 19:32 WBC (4.0-10.5) K/mm3 RBC (4.1-5.6) M/mm3 Hgb (12.5-18.0) gm/dl Hct (42-50) % MCV (78-100) fl MCH (26-32) pg MCHC (32-36) g/dl RDW (11.5-14.0) % Plt Count (150-450) K/mm3 MPV (7.5-11.0) fl Segmented Neutrophils (36.-66.) % Band Neutrophils (0.0-2.0) % Lymphocytes (Manual) (24-44) % Monocytes (Manual) (0.0-12.0) % Platelet Estimate (NORMAL) RBC Morphology pO2/FiO2 Ratio 21.0 % VBG pH 6.99 L* (7.32-7.42) VBG pCO2 at Pat Temp 16 L* (42-55) mm/Hg VBG pO2 at Pat Temp 53 H (25-40) mm/Hg VBG HCO3 3.9 L* (22-28) meq/L VBG O2 Sat (Moni) 82.9 L (95-100) VBG Base Excess -25.9 L (-2.0-2.0) VBG Hemoglobin 13.5 VBG Carboxyhemoglobin 2.5 (0.0-6.9) % T HGB POC Potassium 7.2 H* (3.5-5.1) Sodium (137-145) mmol/L Potassium (3.5-5.1) mmol/L Chloride (98-107) mmol/L Carbon Dioxide (22-30) mmol/L BUN (9-20) mg/dL Creatinine (0.66-1.25) mg/dL Estimated GFR ML/MIN Glucose (74-106) mg/dL Lactic Acid 2.8 H (0.4-2.0) Calcium (8.4-10.2) mg/dL Magnesium (1.6-2.3) mg/dL Total Bilirubin (0.2-1.3) mg/dL AST (17-59) U/L ALT (0-50) U/L Alkaline Phosphatase (38-126) U/L Troponin I 0.347 H* (0.000-0.034) ng/mL Serum Total Protein (6.3-8.2) g/dL Albumin (3.5-5.0) g/dL Lipase 33 (23-300) U/L Urine Color (YELLOW) Urine Appearance (CLEAR) Urine pH (5-6) Ur Specific [place] (1.005-1.025) Urine Protein (Negative) Urine Ketones (NEGATIVE) Urine Blood (0-5) Reginaldo/ul Urine Nitrite (NEGATIVE) Urine Bilirubin (NEGATIVE) Urine Urobilinogen (0-1) mg/dL Ur Leukocyte Esterase (NEGATIVE) Urine WBC (Auto) (0-5) /HPF Urine RBC (Auto) (0-2) /HPF Urine Bacteria (Auto) (NEGATIVE) /HPF Urine Mucus (Auto) (NEGATIVE) /HPF Urine Culture Reflexed (NO) Urine Glucose (NEGATIVE) mg/dL 04/11/21 04/11/21 04/11/21 Range/Units 19:31 19:30 19:30 WBC 26.9 H* (4.0-10.5) K/mm3 RBC 4.28 (4.1-5.6) M/mm3 Hgb 13.1 (12.5-18.0) gm/dl Hct 43.6 (42-50) % MCV 101.9 H (78-100) fl MCH 30.6 (26-32) pg MCHC 30.0 L (32-36) g/dl RDW 12.8 (11.5-14.0) % Plt Count 299 (150-450) K/mm3 MPV 12.0 H (7.5-11.0) fl Segmented Neutrophils 82 H (36.-66.) % Band Neutrophils 6 H (0.0-2.0) % Lymphocytes (Manual) 5 L (24-44) % Monocytes (Manual) 7 (0.0-12.0) % Platelet Estimate NORMAL (NORMAL) RBC Morphology NORMAL pO2/FiO2 Ratio % VBG pH (7.32-7.42) VBG pCO2 at Pat Temp (42-55) mm/Hg VBG pO2 at Pat Temp (25-40) mm/Hg VBG HCO3 (22-28) meq/L VBG O2 Sat (Moni) (95-100) VBG Base Excess (-2.0-2.0) VBG Hemoglobin VBG Carboxyhemoglobin (0.0-6.9) % T HGB POC Potassium (3.5-5.1) Sodium 114 L* (137-145) mmol/L Potassium 7.1 H* (3.5-5.1) mmol/L Chloride 78 L (98-107) mmol/L Carbon Dioxide < 5 L* (22-30) mmol/L BUN 67 H (9-20) mg/dL Creatinine 2.96 H (0.66-1.25) mg/dL Estimated GFR 23.4 ML/MIN Glucose 1045 H* (74-106) mg/dL Lactic Acid (0.4-2.0) Calcium 7.7 L (8.4-10.2) mg/dL Magnesium 2.8 H (1.6-2.3) mg/dL Total Bilirubin 0.70 (0.2-1.3) mg/dL AST 26 (17-59) U/L ALT 24 (0-50) U/L Alkaline Phosphatase 108 (38-126) U/L Troponin I (0.000-0.034) ng/mL Serum Total Protein 6.0 L (6.3-8.2) g/dL Albumin 4.0 (3.5-5.0) g/dL Lipase (23-300) U/L Urine Color (YELLOW) Urine Appearance (CLEAR) Urine pH (5-6) Ur Specific [place] (1.005-1.025) Urine Protein (Negative) Urine Ketones (NEGATIVE) Urine Blood (0-5) Reginaldo/ul Urine Nitrite (NEGATIVE) Urine Bilirubin (NEGATIVE) Urine Urobilinogen (0-1) mg/dL Ur Leukocyte Esterase (NEGATIVE) Urine WBC (Auto) (0-5) /HPF Urine RBC (Auto) (0-2) /HPF Urine Bacteria (Auto) (NEGATIVE) /HPF Urine Mucus (Auto) (NEGATIVE) /HPF Urine Culture Reflexed (NO) Urine Glucose (NEGATIVE) mg/dL - Progress Progress: unchanged, re-examined Progress Note: 04/11/21 21:13 55 years old is evaluated for hyperglycemia. Patient was hypotensive on presentation, given fluid boluses but still hypotensive. Patient was hypothermic, placed on a Mila hugger and temperature improved from 92-94 currently. EKG showed tall T waves and has a venous pH of 6.9 with a potassium of 7.1 and bicarb less than 5. Given 1 ampoule of bicarb . Work-up showed white count of 26.9, acute renal failure with a creatinine of 2.9 and magnesium 2.8. Patient is really dry and is currently on third liter of fluids and still hypotensive. Central line is placed. Patient blood sugar is 1045, given insulin 0.1 unit/kg bolus and started on 8 units/h drip. He is given a dose of Zosyn as well. Abdominal exam is soft nontender. No obvious focus of infection so far. Discussed with Dr. Stoll, reviewed history, work-up, agreed with admission if patient is having any improvement in condition otherwise transfer to higher level of care. On reevaluation his pressure is still low and he is very sleepy, I believe patient has a combination of septic shock, DKA and also has elevated troponin 0.3 without any chest pain which I believe is secondary to hypertensive related strain plus acidosis. I think patient would better be served better high level of care and I have discussed with Dr. Alvarez at [facility], reviewed history, work-up and agreed with transfer. 04/11/21 21:36 Reevaluation patient is still hypotensive with pressure in upper 70s, started on Levophed drip. Portable chest x-ray showed bilateral infiltrative process more on the right side and some congestion. Discussed with : Omari, Other (Kim) Counseled pt/family regarding: lab results, diagnosis, need for follow-up, rad results - Departure Departure Disposition: Transfer Clinical Impression: Septic shock, NSTEMI (non-ST elevated myocardial infarction) DKA (diabetic ketoacidoses) Qualifiers: Diabetes mellitus type: type 2 Diabetes mellitus complication detail: without coma Qualified Code(s): E11.10 - Type 2 diabetes mellitus with ketoacidosis without coma Acute renal failure Qualifiers: Acute renal failure type: unspecified Qualified Code(s): N17.9 - Acute kidney failure, unspecified Condition: Serious Critical Care Time: Yes Critical Care Time(excluding separately billable procedures): Critical 105-134 mins Referrals: HERB MARTIN [Primary Care Provider] - Follow up/PCP as directed
[2021-04-11] MEDS ORDERED: HUMULIN R ONE ×2 (20:04→20:50)
[2021-04-11 20:05] LABS: Hematocrit 43.6 % (42-50); Hemoglobin 13.1 gm/dl (12.5-18.0); Mean Cell Volume 101.9 fl (78-100); Mean Corpuscular Hemoglobin 30.6 pg (26-32); Platelet Count 299 K/mm3 (150-450); Red Blood Count 4.28 M/mm3 (4.1-5.6); Red Cell Distribution Width 12.8 % (11.5-14.0)
[2021-04-11] MEDS ORDERED: Zosyn 3.375 GM Vial IV ONE (20:11)
[2021-04-11] MEDS ORDERED: Sodium Chloride 100ML MINI-BAG PLUS 100 ML IV ONE (20:12)
[2021-04-11 20:16] LABS: ALKALINE PHOSPHATASE 108 U/L (38-126); BLOOD UREA NITROGEN 67 mg/dL (9-20); CHLORIDE 78 mmol/L (98-107); Calcium 7.7 mg/dL (8.4-10.2); SGOT/AST 26 U/L (17-59); SGPT/ALT 24 U/L (0-50)
[2021-04-11 20:23] LABS: Creatinine 1 2.96 mg/dL (0.66-1.25); EST GLOMERULAR FILTRATION RATE 23.4 ML/MIN
[2021-04-11 20:31] LABS: Carbon Dioxide < 5 mmol/L (22-30); Glucose 1045 mg/dL (74-106); Potassium 7.1 mmol/L (3.5-5.1); SODIUM 114 mmol/L (137-145)
[2021-04-11 20:32] LABS: White Blood Count 26.9 K/mm3 (4.0-10.5)
[2021-04-11 20:37] LABS: Appearance SLIGHTLY CLOUDY (CLEAR); Bacteria RARE /HPF (NEGATIVE); Bilirubin NEGATIVE (NEGATIVE); Blood SMALL Ery/ul (0-5); Glucose >=500 mg/dL (NEGATIVE); Ketones SMALL (NEGATIVE); Leukocyte Esterase NEGATIVE (NEGATIVE); Mucus SLIGHT /HPF (NEGATIVE); Nitrite NEGATIVE (NEGATIVE); Protein,Urine Dip NEGATIVE (Negative); RBC 0-2 /HPF (0-2); Specific Gravity 1.017 (1.005-1.025); Urobilinogen NEGATIVE mg/dL (0-1)
[2021-04-11] MEDS ORDERED: HUMULIN R IV ONE (20:41)
[2021-04-11] MEDS ORDERED: Sodium Chloride 0.9% 100 ML BAG 100 ML ONE (20:51)
[2021-04-11 21:14] LABS: BAND 6 % (0.0-2.0); Lymphocytes 5 % (24-44); Monocyte 7 % (0.0-12.0); Neutrophils 82 % (36.-66.); Platelet Estimate NORMAL (NORMAL); Total Cells Counted 100
--- NOTE | 2021-04-12 08:59 | XRAY ---
Indication: Hyperglycemia. Comparison: November 10, 2019. Portable chest remains slightly underinflated again without focal infiltrate, consolidation, or large effusion. Heart not enlarged for AP portable technique. Bony thorax intact again with mild osteopenia, degenerative changes, and minimal levoscoliosis. Impression: Continued nonacute underinflated chest with chronic bony findings.
== END 2021-04-11 22:00 | disposition short-term general hospital (02) ==
LOC: ED 19:20
DX: E11.10 Type 2 diabetes mellitus with ketoacidosis without coma (principal); A41.9 Sepsis, unspecified organism; R65.21 Severe sepsis with septic shock; I21.4 Non-ST elevation (NSTEMI) myocardial infarction; N17.9 Acute kidney failure, unspecified; Z79.4 Long term (current) use of insulin; Z96.41 Presence of insulin pump (external) (internal); Z79.84 Long term (current) use of oral hypoglycemic drugs; Z87.891 Personal history of nicotine dependence; Z79.899 Other long term (current) drug therapy
CPT/HCPCS: 36000; 36415; 36556; 36573; 71045; 80053; 81001; 82805; 82947; 83605; 83690; 83735; 84484; 85025; 87040; 93005; 96360; 96361; 96374; 96375; 99285; 99291; 99292; J1815; J2405

== ENCOUNTER 2021-04-14 11:58 | Emergency (ER) | payer MEDICARE ==
[2013-02-26 20:25] VITALS: BP 123/75
[2021-04-14] MEDS ORDERED: Zofran 4 MG/2 ML VIAL IV ONE (12:06)
[2021-04-14] MEDS ORDERED: Sodium Chloride 0.9% 1000 ML 1,000 ML IV STA ×2 (12:06→12:45)
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
[2021-04-14] MEDS ORDERED: Zofran 4 MG/2 ML VIAL ONE (12:16)
[2021-04-14] MEDS ORDERED: Sodium Chloride 0.9% 1000 ML 1,000 ML ONE (12:16)
[2021-04-14 12:23] LABS: Absolute Neutrophil Ct (ANC) 11.77 (1.4-6.9); BASOPHIL % 0.2 % (0.0-0.4); Basophil (Absolute #) 0.02 (0-0.4); Eosinophil (Absolute #) 0 (0-0.5); Hematocrit 38.8 % (42-50); Hemoglobin 12.1 gm/dl (12.5-18.0); Lymphocyte (Absolute #) 0.52 (1.0-4.6); Mean Cell Volume 98.5 fl (78-100); Mean Corpuscular Hemoglobin 30.7 pg (26-32); Mean Corpuscular Hgb Concent. 31.2 g/dl (32-36); Mean Platelet Volume 10.6 fl (7.5-11.0); Monocyte (Absolute #) 0.67 (0.0-1.3); Monocytes % 5.2 % (0.0-12.0); Neutrophil % 90.6 % (36.0-66.0); Platelet Count 165 K/mm3 (150-450); Red Blood Count 3.94 M/mm3 (4.1-5.6); Red Cell Distribution Width 14.2 % (11.5-14.0)
[2021-04-14 12:29] LABS: Appearance CLEAR (CLEAR); Bacteria RARE /HPF (NEGATIVE); Bilirubin NEGATIVE (NEGATIVE); Blood LARGE Ery/ul (0-5); Glucose >=500 mg/dL (NEGATIVE); Ketones MODERATE (NEGATIVE); Leukocyte Esterase NEGATIVE (NEGATIVE); Mucus SLIGHT /HPF (NEGATIVE); Nitrite NEGATIVE (NEGATIVE); Protein,Urine Dip 30 (Negative); Urobilinogen NEGATIVE mg/dL (0-1)
[2021-04-14 12:34] LABS: ALBUMIN 3.8 g/dL (3.5-5.0); ALKALINE PHOSPHATASE 91 U/L (38-126); BLOOD UREA NITROGEN 47 mg/dL (9-20); CHLORIDE 101 mmol/L (98-107); Calcium 8.2 mg/dL (8.4-10.2); Creatinine 1 2.33 mg/dL (0.66-1.25); EST GLOMERULAR FILTRATION RATE 30.8 ML/MIN; Glucose 462 mg/dL (74-106); MAGNESIUM 2.9 mg/dL (1.6-2.3); SGOT/AST 67 U/L (17-59); SGPT/ALT 47 U/L (0-50); SODIUM 136 mmol/L (137-145); Total Protein 6.3 g/dL (6.3-8.2)
[2021-04-14 12:35] LABS: Potassium 6.3 mmol/L (3.5-5.1)
[2021-04-14 12:35] LABS: ACETAMINOPHEN < 10 ug/ml (10-30); ETHYL ALCOHOL < 10 mg/dL (0-10); SALICYLATE < 1.0 mg/dL (2-20)
[2021-04-14 12:36] LABS: Carbon Dioxide < 5 mmol/L (22-30)
[2021-04-14] MEDS ORDERED: HUMULIN R IV ONE (12:44)
[2021-04-14] MEDS ORDERED: SODIUM BICARBONATE 50 MEQ/50 ML ABBOJECT IV ONE ×4 (12:44→13:10)
[2021-04-14] MEDS ORDERED: CALCIUM CHLORIDE 10% 1000 MG IV ONE (12:45)
[2021-04-14 12:46] LABS: A-aADO2 147; ABG HEMOGLOBIN 12.5; ARTERIAL BLD GAS O2 SATURATION 99.1 % (95-100); ARTERIAL BLOOD GAS BASE EXCESS -25.4 (-2.0-2.0); ARTERIAL BLOOD GAS FIO2 44 %; ARTERIAL BLOOD GAS PO2 158 mmHg (75-100); CARBOXYHEMOGLOBIN 0.7 % THgb (0.0-6.9); HCO3- 2.1 (22-28); HGB O2 SAT 97.4 g/dF (94-100)
[2021-04-14] MEDS ORDERED: Lasix 40 MG/4 ML IV ONE (12:46)
[2021-04-14 12:47] LABS: ABG POTASSIUM 6.6 (3.5-5.1); ABG SITE RIGHT RADIAL; ALLEN TEST OK? YES; ARTERIAL BLOOD GAS PCO2 7 mmHg (35-45); ARTERIAL BLOOD GAS pH 7.08 (7.35-7.45)
[2021-04-14 12:47] LABS: Amphetamine,Urine NEGATIVE (NEGATIVE); Barbiturate,Urine NEGATIVE (NEGATIVE); Benzodiazepine,Urine NEGATIVE (NEGATIVE); Cocaine,Urine NEGATIVE (NEGATIVE); Methadone,Urine NEGATIVE (NEGATIVE); Opiate,Urine NEGATIVE (NEGATIVE); PCP,Urine NEGATIVE (NEGATIVE); THC,Urine NEGATIVE (NEGATIVE)
[2021-04-14] MEDS ORDERED: CALCIUM CHLORIDE 10% 1000 MG ONE (12:50)
[2021-04-14] MEDS ORDERED: HUMULIN R ONE (12:51)
[2021-04-14] MEDS ORDERED: Lasix 40 MG/4 ML ONE (12:51)
--- NOTE | 2021-04-14 20:07 | XRAY ---
Indication: Acute mental status change. Multiple contiguous axial images obtained through the head without contrast. Comparison: January 12, 2019. There is age-appropriate global atrophy. No acute intracranial hemorrhage, abnormal extra-axial fluid collection, or mass effect. Fourth ventricle is midline without hydrocephalus. Reyna-white matter differentiation preserved. Bony calvarium intact. Again partial opacification inferior right mastoid air cells. Remaining visualized paranasal sinuses and left mastoid air cells are clear. Impression: Again partial opacification right mastoid air cells presumed inflammatory. Remaining CT head without contrast exam is negative. Common: Preliminary interpretation made by [facility]. No critical discrepancy.
== END 2021-04-14 13:41 | disposition short-term general hospital (02) ==
LOC: ED 11:58
DX: E11.10 Type 2 diabetes mellitus with ketoacidosis without coma (principal); Z79.4 Long term (current) use of insulin; Z79.84 Long term (current) use of oral hypoglycemic drugs; E87.5 Hyperkalemia; I21.4 Non-ST elevation (NSTEMI) myocardial infarction; I10 Essential (primary) hypertension; N17.9 Acute kidney failure, unspecified; Z79.899 Other long term (current) drug therapy
CPT/HCPCS: 36000; 36415; 36600; 51702; 70450; 80053; 80307; 81001; 82140; 82375; 82803; 82947; 83605; 83735; 84484; 85025; 87086; 93005; 96374; 96375; 96376; 99285; 99291; G0480; J1815; J1940; J2405